=== PATIENT | male | born 1970 | race Hispanic/Latino ===

== ENCOUNTER 2019-07-21 04:30 | Emergency (ER) | payer SELFPAY | END 2019-07-21 04:49 | LOC: EDH 04:30 | DX: Z02.83 Encounter for blood-alcohol and blood-drug test (principal) ==

== ENCOUNTER 2022-11-18 13:55 | Emergency (ER) | payer OTHER ==
[~2022-11-18] VITALS: Ht 172.7 cm; Wt 81.6 kg
[2022-11-18] MEDS ORDERED: IBUPROFEN 600 MG TABLET PO ONE (17:00)
[2022-11-18] MEDS ORDERED: TIZANIDINE HCL 2 MG TABLET PO SCH (17:00)
[2022-11-18] MEDS ORDERED: DIAZEPAM 5 MG TABLET PO ONE (17:00)
[2022-11-18] MEDS ORDERED: PREDNISONE 20 MG TABLET PO ONE (17:00)
[2022-11-18] MEDS ORDERED: PRED20TA3 PO ×2 (18:31→18:32)
[2022-11-18] MEDS ORDERED: IBUP-2070 PO ×2 (18:31→18:32)
[2022-11-18] MEDS ORDERED: NEO/3.5O OD ×2 (18:31→18:32)
[2022-11-18] MEDS ORDERED: METH-811 PO ×2 (18:31→18:32)
[2022-11-18 18:39] VITALS: BP 132/78; PULSE 74; RESP 18; O2SAT 98
== END 2022-11-18 18:51 | disposition home or self-care (01) ==
LOC: EDH 13:55
DX: S39.012A Strain of muscle, fascia and tendon of lower back, initial encounter (principal); X58.XXXA Exposure to other specified factors, initial encounter; Y93.89 Activity, other specified; Y92.89 Other specified places as the place of occurrence of the external cause; Y99.8 Other external cause status
CPT/HCPCS: 72100